=== PATIENT | male | born 1955 | race Asian ===

== ENCOUNTER 2022-06-17 19:16 | Emergency (ER) | payer OTHER, MEDICARE ==
[~2022-06-17] VITALS: Ht 180.3 cm; Wt 123.4 kg
[2022-06-17 19:20] VITALS: BP 165/89; TEMP 98.2
== END 2022-06-17 21:53 | disposition home or self-care (01) ==
LOC: ED 19:16
DX: H57.12 Ocular pain, left eye (principal); Z98.42 Cataract extraction status, left eye; Z96.1 Presence of intraocular lens; G44.89 Other headache syndrome
CPT/HCPCS: 96372; 99283; J2270; J2550